=== PATIENT | male | born 1970 | race Two or more races ===

== ENCOUNTER → 2023-07-27 | Outpatient (CLI) | payer BC ==
--- NOTE | 2023-07-27 21:46 | XR ---
EXAMINATION TYPE: XR knee limited bilateral DATE OF EXAM: 07/27/2023 COMPARISON: None HISTORY: Chronic knee pain TECHNIQUE: Two-view bilateral knees FINDINGS: No joint effusions are evident. Joint spaces appear preserved. No acute or subacute fractur es identified. IMPRESSION: 1. No suspicious osseous abnormalities bilateral knees
== END | disposition home or self-care (01) ==
LOC: RADXRMAIN 10:40
PROVIDERS: ATTEND Family Medicine
DX: M25.561 Pain in right knee (principal); M25.562 Pain in left knee; G89.29 Other chronic pain